=== PATIENT | male | born 1985 | race Caucasian/White ===

== ENCOUNTER 2020-01-28 06:36 | Emergency (ER) | payer MEDICAID ==
[~2020-01-28] VITALS: Ht 185.4 cm; Wt 81.8 kg
[2020-01-28] MEDS ORDERED: PREDNISONE10 MG PO (06:49)
[2020-01-28] MEDS ORDERED: BETAPACE80 M1 PO (06:50)
[2020-01-28] MEDS ORDERED: IBUPROFEN600 M1 PO (06:50)
[2020-01-28 07:46] LABS: EOS # 0.2 (0.04-0.40); EOS % 1.4 % (0.0-4.0); HEMATOCRIT 45.2 % (42.0-52.0); HEMOGLOBIN 15.1 g/dL (13.5-18.0); MEAN CELL VOLUME 93 fl (78-100); MEAN CORPUSCULAR HEMOGLOBIN 31 pg (27-31); MEAN CORPUSCULAR HGB CONC 33 g/dL (33-37); MEAN PLATELET VOLUME 9.5 fl (7.4-10.4); MONO # 0.9 (0.20-0.80); NEU # 5.8 (1.40-6.50); PLATELET COUNT 166 K/mm3 (130-400); RED BLOOD COUNT 4.85 M/mm3 (4.20-5.60); RED CELL DISTRIBUTION WIDTH 13.5 % (11.5-14.5); WHITE BLOOD COUNT 11.6 K/mm3 (4.8-10.8)
[2020-01-28 07:59] LABS: POTASSIUM 4.1 mmol/L (3.5-5.1); SODIUM 139 mmol/L (136-145)
[2020-01-28 08:00] LABS: CALCIUM 8.8 mg/dL (8.3-10.5)
[2020-01-28 08:01] LABS: GLUCOSE 94 mg/dL (75-110); TOTAL PROTEIN 6.5 g/dL (6.4-8.3)
[2020-01-28 08:02] LABS: CARBON DIOXIDE 24 mmol/L (22-29)
[2020-01-28 08:03] LABS: TOTAL BILIRUBIN 0.4 mg/dL (0.2-1.2)
[2020-01-28 08:06] LABS: AST-SGOT 17 U/L (5-34)
[2020-01-28 08:08] LABS: ALT/SGPT 28 U/L (0-55)
[2020-01-28 08:09] LABS: LYMPH# 4.8 (1.50-4.00)
[2020-01-28 08:27] LABS: TROPONIN-I < 0.03 ng/mL (<0.030)
[2020-01-28] MEDS ORDERED: COLCHICINE0.6 M2 PO (08:40)
[2020-01-28 08:59] LABS: D-DIMER 0.48 mg/L FEU (0.15-0.50)
[2020-01-28 11:20] VITALS: BP 130/60
== END 2020-01-28 11:20 | disposition home or self-care (01) ==
LOC: ED 06:36
PROVIDERS: Nurse Practitioner
DX: R07.89 Other chest pain (principal); R06.02 Shortness of breath; R05 Cough; Z20.828 Contact with and (suspected) exposure to other viral communicable diseases; Z79.52 Long term (current) use of systemic steroids

== ENCOUNTER 2020-12-19 13:05 | Emergency (ER) | payer MEDICAID ==
[~2020-12-19 13:05] MED LIST: BETAPACE80 M1 PO; COLCHICINE0.6 M2 PO; IBUPROFEN600 M1 PO; PREDNISONE10 MG PO
[2020-12-19] MEDS ORDERED: VITAMIN D350 MC1 PO (13:20)
[2020-12-19] MEDS ORDERED: MAGNESIUM200 MG PO (13:20)
[2020-12-19 13:50] LABS: BASO # 0.1 (0.02-0.10); EOS # 0.3 (0.04-0.40); HEMATOCRIT 46.4 % (42.0-52.0); HEMOGLOBIN 15.3 g/dL (13.5-18.0); LYMPH# 2.4 (1.50-4.00); MEAN CELL VOLUME 92 fl (78-100); MEAN CORPUSCULAR HEMOGLOBIN 31 pg (27-31); MEAN CORPUSCULAR HGB CONC 33 g/dL (33-37); MEAN PLATELET VOLUME 9.8 fl (7.4-10.4); MONO # 0.6 (0.20-0.80); NEU # 3.4 (1.40-6.50); PLATELET COUNT 188 K/mm3 (130-400); RED BLOOD COUNT 5.02 M/mm3 (4.20-5.60); RED CELL DISTRIBUTION WIDTH 13.2 % (11.5-14.5); WHITE BLOOD COUNT 6.8 K/mm3 (4.8-10.8)
[2020-12-19 13:52] LABS: URINE APPEARANCE CLEAR; URINE BILIRUBIN NEGATIVE (NEGATIVE); URINE BLOOD NEGATIVE (NEGATIVE); URINE COLOR YELLOW; URINE GLUCOSE NEGATIVE (NEGATIVE); URINE KETONE NEGATIVE (NEGATIVE); URINE LEUKOCYTE ESTERASE NEGATIVE (NEGATIVE); URINE NITRATE NEGATIVE (NEGATIVE); URINE PROTEIN(semi-quant) NEGATIVE (NEGATIVE); URINE UROBILINOGEN NORMAL (NORMAL); URINE WBC 0-1 /hpf (0-3)
[2020-12-19 14:11] LABS: ALBUMIN 3.8 g/dL (3.5-5.0)
[2020-12-19 14:12] LABS: POTASSIUM 4.5 mmol/L (3.5-5.1); SODIUM 138 mmol/L (136-145)
[2020-12-19 14:13] LABS: CALCIUM 8.8 mg/dL (8.3-10.5)
[2020-12-19 14:14] LABS: GLUCOSE 99 mg/dL (75-110); TOTAL PROTEIN 6.3 g/dL (6.4-8.3)
[2020-12-19 14:15] LABS: CARBON DIOXIDE 23 mmol/L (22-29)
[2020-12-19 14:16] LABS: TOTAL BILIRUBIN 0.4 mg/dL (0.2-1.2)
[2020-12-19 14:19] LABS: AST-SGOT 16 U/L (5-34)
[2020-12-19 14:20] LABS: ALT/SGPT 24 U/L (0-55)
[2020-12-19 14:39] LABS: TROPONIN-I < 0.03 ng/mL (<0.030)
[2020-12-19 15:54] LABS: D-DIMER 0.34 mg/L FEU (0.15-0.50)
[2020-12-19 16:19] VITALS: BP 114/71
[2020-12-19] MEDS ORDERED: VALIUM 2MG T2 MG/TAB PO (16:19)
== END 2020-12-19 16:36 | disposition home or self-care (01) ==
LOC: ED 13:05
PROVIDERS: Nurse Practitioner Family
DX: J01.90 Acute sinusitis, unspecified (principal); H81.391 Other peripheral vertigo, right ear; H83.01 Labyrinthitis, right ear; I48.91 Unspecified atrial fibrillation; E61.2 Magnesium deficiency; Z95.0 Presence of cardiac pacemaker; Z87.891 Personal history of nicotine dependence; Z79.01 Long term (current) use of anticoagulants; Z20.822 Contact with and (suspected) exposure to COVID-19
CPT/HCPCS: J7030

== ENCOUNTER 2021-04-03 21:03 | Emergency (ER) | payer MEDICAID ==
[~2021-04-03 21:03] MED LIST changes: +MAGNESIUM200 MG PO; +VALIUM 2MG T2 MG/TAB PO; +VITAMIN D350 MC1 PO
[2021-04-03 22:35] VITALS: BP 126/86
== END 2021-04-03 22:40 | disposition home or self-care (01) ==
LOC: ED 21:03
DX: U07.1 COVID-19 (principal); H66.91 Otitis media, unspecified, right ear; F17.200 Nicotine dependence, unspecified, uncomplicated